=== PATIENT | female | born 1965 | race Caucasian/White ===

== ENCOUNTER 2019-12-30 18:44 | Inpatient (IN) | payer MEDICARE, OTHER ==
[~2019-12-30] VITALS: Ht 175.3 cm; Wt 90.7 kg
[2019-12-30] MEDS ORDERED: IBUPROFEN (18:55)
[2019-12-30] MEDS ORDERED: NALT50TA PO (18:55)
[2019-12-30] MEDS ORDERED: TRAZ-257 PO (18:55)
[2019-12-30] MEDS ORDERED: VENL37.55 PO (18:55)
[2019-12-30] MEDS ORDERED: BUPROPION (18:55)
--- NOTE | 2019-12-30 19:00 | NUR ---
Pt medically cleared by Dr. Schroeder.
[2019-12-30] MEDS ORDERED: HALOPERIDOL LACTATE 5 MG/1 ML VIAL IM ONE (19:30)
[2019-12-30] MEDS ORDERED: HALOPERIDOL LACTATE 5 MG/1 ML VIAL ONE (19:31)
--- NOTE | 2019-12-30 19:41 | NUR ---
Report given to [facility].
[2019-12-30 20:00] VITALS: BP 144/71
[2019-12-30] MEDS ORDERED: BLOOD SUGAR DIAGNOSTIC 1 EACH STRIP VI ONE (20:00)
[2019-12-30] MEDS ORDERED: MAGNESIUM HYDROXIDE 30 ML LIQUID UDC PO PRN (20:00)
[2019-12-30] MEDS: TEMAZEPAM 7.5 MG CAPSULE PO PRN (21:37)
--- NOTE | 2019-12-30 22:00 | NUR ---
Admission notes: At approx. 2014, admitted 54 years old female form [facility] to [facility] on a 5150 hold for GD. Per Mother Jade Messer, patient is a and she leaves on an apartment. Per hold, patient was taken to retirement on 12/28/19 d/t a DUI. She was also found covered in urine and feces, she was also making irrational statement, acting hostile. pt was then put on a 72 hrs and was taken to [facility] were she was medically cleared and transported to [facility] ER where she was given Haldol 10mg for anxiety agitation and belligerent. Upon admission, patient was noted A/O x 3; Pt reflects what is written on the hold. She is angry, uncooperative, argumentative, verbally abusive with staff. pt noted with poor insight and judgment as to the reason for her admission to MHU. Patient was able to take a shower, skin assessment was limited d/t pt poor compliant. few skin tears were noted in patient's left ankle and some in left anterior distal foot. a wound consul was ordered. Face to face assessment was done, pt was advise of her hold. advisement given as well as the booklet for "patient's right for mental health". Pt was checked for con, belongings were inventoried and secure. patient was given the unit rules. Temazepam 7.5mg PO PRN was given. Will continue with Q15 min checks.
[2019-12-31] MEDS: LORAZEPAM 1 MG TABLET PO PRN ×2 (06:53→16:57)
[2019-12-31 07:30] VITALS: BP 120/78
[2019-12-31 07:45] LABS: CREATININE 0.8 mg/dL (0.6-1.3); POTASSIUM 3.5 mmol/L (3.5-5.1)
[2019-12-31] MEDS: NICOTINE 21 MG/24HR PATCH TD SCH (08:09)
--- NOTE | 2019-12-31 09:41 | NUR ---
GPS: received patient AOx3, patient asleep on bed, patient disorganized, labile, easily irritable, patient evaluated by physical therapist, patient has some wound in her R heal, patient went back to bed after the PT eval, will continue monitor
--- NOTE | 2019-12-31 11:05 | NUR ---
Social Work Initial Discharge Plan: Patient currently resides at [address] [place] [address], [facility]. Per patient, she would like to return back home upon discharge. This script writer spoke with patient's mother Jade ([phone]) is aware and agreeable with discharge plan. case management social worker will work with the MD and the treatment team to provide proper discharge plan.
--- NOTE | 2019-12-31 11:22 | NUR ---
Social Work Firearms Report: Dietary Aide Teacher completed and submitted a [employer] firearms report for 5250 grave disability certification. A copy of report has been placed in patient chart.
--- NOTE | 2019-12-31 11:33 | NUR ---
WOUND CARE CONSULT: LIMITED ASSESSMENT DUE TO PT ONLY ALLOWED ASSESSMENT OF FEET. RT POSTERIOR FOOT/ANKLE HAS DRY WOUNDS, PRESENT ON ADMISSION. RECOMMEND DPM CONSULT. DR PASTRANA NOTIFIED OF CONSULT REQUEST. WILL SEE PRRoland JARRETT IN AGREEMENT WITH PLAN OF CARE.
--- NOTE | 2019-12-31 11:42 | NUR ---
Social Work Family Contact: This procedure writer spoke with patient's mother Jade ([phone]) is aware and agreeable with discharge plan. This procedure writer gathered collateral information.
--- NOTE | 2019-12-31 14:35 | NUR ---
Social Work Substance Abuse Intervention: \ Patient was provided with a brief substance abuse intervention and referred to [facility] [address], [place] [address] ([phone]); [facility] [address], [address], [place] [address] ([phone]); [facility] ([phone]); [facility] ([phone]); [facility] ([phone]); and National Suicide Prevention Lifeline (779-866-0604).
[2019-12-31 15:31] VITALS: BP 127/85
--- NOTE | 2019-12-31 15:35 | NUR ---
Social Work Coordination of Care: road worker spoke with patient's family service caseworker Livia ([phone]) and stated that she will make appointments for patient to follow up with her psychiatrist Dr. Gonsalez and pump operator byproducts Dr. Flower. Per Livia, she will follow-up with this grant writer.
--- NOTE | 2019-12-31 18:19 | NUR ---
patient remain to be isolative, seen patient crying , patient no distress, patient ask for medication for her anxiety, meds given as ordered, patient ate her meal, no distress at this time
[2019-12-31] MEDS: MAG HYDROX/AL HYDROX/SIMETH 30 ML LIQUID UDC PO PRN (19:42)
[2019-12-31 20:00] VITALS: BP 158/87
--- NOTE | 2019-12-31 20:54 | NUR ---
Received pt resting in bed. No acute distress noted. Pt complained of stomach upset, Maalox given. Denies SI/HI. Pt noted to be laughing by herself. Asked pt regarding it but pt just shook her head. Safety measures maintained. Will continue to monitor.
[2019-12-31] MEDS ORDERED: HALOPERIDOL 1 MG TABLET PO SCH (21:45)
[2019-12-31] MEDS: LITHIUM CARBONATE 300 MG CAPSULE PO SCH (21:48)
[2019-12-31] MEDS: BENZTROPINE MESYLATE 1 MG TABLET PO SCH (21:48)
--- NOTE | 2019-12-31 22:00 | NUR ---
Dr. Rodriguez came in and seen pt with new orders. Clarified order with MD and carried out order. Continue to monitor.
[2020-01-01 07:30] VITALS: BP 112/69
[2020-01-01] MEDS: LITHIUM CARBONATE 300 MG CAPSULE PO SCH ×3 (08:09→20:28)
[2020-01-01] MEDS: NICOTINE 21 MG/24HR PATCH TD SCH (08:09)
[2020-01-01] MEDS: BENZTROPINE MESYLATE 1 MG TABLET PO SCH ×3 (08:09→20:28)
[2020-01-01] MEDS: LORAZEPAM 1 MG TABLET PO PRN (08:41)
[2020-01-01] MEDS ORDERED: HALOPERIDOL 5 MG TABLET PO SCH (09:00)
[2020-01-01 16:23] VITALS: BP 117/72
[2020-01-01] MEDS: HALOPERIDOL 5 MG TABLET PO SCH ×2 (16:33→20:27)
--- NOTE | 2020-01-01 17:47 | NUR ---
patient AOX2, patient is agitated PRN medication given as ordered, patients denies pain, assisted with ADL, denies SI and HI
[2020-01-01 20:27] VITALS: BP 141/88
[2020-01-01] MEDS: ATORVASTATIN 10 MG TABLET PO SCH (20:28)
[2020-01-01] MEDS: MAG HYDROX/AL HYDROX/SIMETH 30 ML LIQUID UDC PO PRN (21:49)
[2020-01-02] MEDS: LORAZEPAM 1 MG TABLET PO PRN ×3 (02:55→18:04)
[2020-01-02] MEDS: ACETAMINOPHEN 325 MG TABLET PO PRN ×3 (03:08→20:01)
--- NOTE | 2020-01-02 03:08 | NUR ---
Pt awake, crying, anxious, ativan was given.
[2020-01-02] MEDS: TEMAZEPAM 7.5 MG CAPSULE PO PRN (03:23)
--- NOTE | 2020-01-02 03:23 | NUR ---
Patient up most of the night so far. Very labile behavior. Laughing, crying, banging on the alonzo and pushing on the exit door. Difficult to redirect or distract. Patient is paranoid and delusional, stating " I am tired of being in purgatory. Give me medications. I cant take it anymore and I do not give a shit if my yelling is keeping others awake." medicated earlier with Ativan. Sleeping medication given. Frequent rounds being done and monitoring patient closely for safety and any behavior escalation. Flare Man and staff will continue to redirect and encourage calmness as needed.
--- NOTE | 2020-01-02 06:28 | NUR ---
Pt slept 4.0 hrs. Fell asleep after given restoril.
[2020-01-02 07:30] VITALS: BP 114/67
[2020-01-02 08:01] LABS: BASOPHILS % (AUTO) 0.7 % (0.0-2.0); EOSINOPHILS # (AUTO) 0.2 K/uL (0.0-0.7); EOSINOPHILS % (AUTO) 3.8 % (0.0-7.0); HEMATOCRIT 38.8 % (31.2-41.9); HEMOGLOBIN 12.6 g/dL (10.9-14.3); LYMPHOCYTES # (AUTO) 1.5 K/uL (20.0-40.0); LYMPHOCYTES % (AUTO) 37.6 % (20.5-51.5); MEAN CORPUSCULAR HEMOGLOBIN 29.6 uug (24.7-32.8); MEAN CORPUSCULAR HGB CONC 33 g/dL (32.3-35.6); MEAN CORPUSCULAR VOLUME 91.2 fL (75.5-95.3); MONOCYTES # (AUTO) 0.4 K/uL (2.0-10.0); MONOCYTES % (AUTO) 9.7 % (0.0-11.0); NEUTROPHILS # (AUTO) 1.9 K/uL (1.8-8.9); NEUTROPHILS % (AUTO) 48.2 % (38.5-71.5); PLATELET COUNT (AUTO) 380 K/uL (179-408); RED BLOOD CELL COUNT(AUTO) 4.26 MIL/uL (3.63-4.92)
[2020-01-02 08:24] LABS: THYROID STIMULATING HORMONE 4.209 mIU/mL (0.358-3.740)
[2020-01-02 08:53] LABS: BILIRUBIN,TOTAL 0.5 mg/dL (0.2-1.0); CREATININE 0.8 mg/dL (0.6-1.3); MAGNESIUM 2.5 mg/dL (1.8-2.4); PHOSPHOROUS 5.5 mg/dL (2.5-4.9); POTASSIUM 4.1 mmol/L (3.5-5.1); TOTAL PROTEIN, SERUM 7.2 g/dL (6.4-8.2)
[2020-01-02] MEDS: LITHIUM CARBONATE 300 MG CAPSULE PO SCH ×3 (10:10→20:01)
[2020-01-02] MEDS: HALOPERIDOL 5 MG TABLET PO SCH ×3 (10:10→20:01)
[2020-01-02] MEDS: NICOTINE 21 MG/24HR PATCH TD SCH (10:10)
[2020-01-02] MEDS: BENZTROPINE MESYLATE 1 MG TABLET PO SCH ×3 (10:10→20:01)
[2020-01-02] MEDS: MAG HYDROX/AL HYDROX/SIMETH 30 ML LIQUID UDC PO PRN ×2 (10:42→20:16)
[2020-01-02 16:05] VITALS: BP 136/83
[2020-01-02 20:00] VITALS: BP 127/81
[2020-01-02] MEDS: ATORVASTATIN 10 MG TABLET PO SCH (20:01)
--- NOTE | 2020-01-02 20:15 | NUR ---
RECEIVED PATIENT IN THE DAYROOM. SHE IS NOTED A/O X 3. ABLE TO AMBULATE WITH STEADY GAIT, AND ABLE TO VERBALIZED FEELINGS. PATIENT NOTED LABILE, TANGENTAL, PREOCCUPIED AND ANXIOUS. PATIENT DENIES SI/HI/VH/AH/ SHE IS ABLE TO COMPLY WITH MEDICATION REGIMENT DIET AND PLAN OF CARE. PATIENT IS REASSURED FOR HER SAFETY, SAFETY AND FALL PRECAUTION IN PLACE. WILL CONTINUE TO MONITOR
[2020-01-03] MEDS: TEMAZEPAM 7.5 MG CAPSULE PO PRN (01:26)
[2020-01-03] MEDS: MAG HYDROX/AL HYDROX/SIMETH 30 ML LIQUID UDC PO PRN ×3 (02:26→21:11)
[2020-01-03] MEDS: LORAZEPAM 1 MG TABLET PO PRN ×4 (04:28→19:49)
[2020-01-03 07:30] VITALS: BP 107/76
[2020-01-03] MEDS: LITHIUM CARBONATE 300 MG CAPSULE PO SCH ×3 (08:41→21:08)
[2020-01-03] MEDS: HALOPERIDOL 5 MG TABLET PO SCH ×3 (08:41→21:09)
[2020-01-03] MEDS: BENZTROPINE MESYLATE 1 MG TABLET PO SCH ×3 (08:42→21:10)
[2020-01-03] MEDS: NICOTINE 21 MG/24HR PATCH TD SCH (08:42)
--- NOTE | 2020-01-03 12:59 | NUR ---
Social Work Individual Therapy: line worker met with patient for brief counseling to address patient's disorganized thought process. Patient appeared guarded and withdrawn. Patient was vague with her answers and stated that she is "fine". Patient was responding to internal stimulli and was singing while this mortgage loan underwriter attempted to provide therapy. This mortgage loan underwriter encouraged patient to participate in group and to interact with peers.
[2020-01-03] MEDS: ACETAMINOPHEN 325 MG TABLET PO PRN (14:38)
--- NOTE | 2020-01-03 14:45 | NUR ---
Gps/Frit Mixer- Has demanding, labile mood, needy, yels and tends to be loud to make her needs known to staff. Dcouraged from yelling,. Med. . seeking, kept coming to the Nurses station, asking for any medications that is due r" right now " per pt. Also noted crying spells.
[2020-01-03 15:10] VITALS: BP 114/80
--- NOTE | 2020-01-03 20:00 | NUR ---
Received patient in the hallway. She was noted yelling, demanding, for Mylanta. Patent noted with poor impulse control. she requires multiple redirections. She is noted A/O x 3. easily irritable, mood is low, affect is labile. Pt denies SI, Denies HI/VH/AH. Patient was given Mylanta for upset stomach and Ativan 1mg PO PRN. V/S stable, pt is reassured for her safety. safety and fall precaution in place. will continue to monitor.
[2020-01-03] MEDS: ATORVASTATIN 10 MG TABLET PO SCH (21:08)
[2020-01-04 01:03] VITALS: BP 121/84
[2020-01-04] MEDS: LORAZEPAM 1 MG TABLET PO PRN ×3 (05:59→15:21)
[2020-01-04 07:30] VITALS: BP 115/60
[2020-01-04] MEDS: BENZTROPINE MESYLATE 1 MG TABLET PO SCH ×3 (08:38→20:13)
[2020-01-04] MEDS: LITHIUM CARBONATE 300 MG CAPSULE PO SCH ×3 (08:39→20:13)
[2020-01-04] MEDS: NICOTINE 21 MG/24HR PATCH TD SCH (08:39)
[2020-01-04] MEDS: HALOPERIDOL 5 MG TABLET PO SCH ×3 (08:39→20:13)
[2020-01-04 16:00] VITALS: BP 120/74
--- NOTE | 2020-01-04 16:00 | NUR ---
Gps/Block And Case Maker Had been quiet, stayed in her room most of the time, sleeping. Encouraged participation in her group therapy.Comes out of her room and asked for her PRN
[2020-01-04 20:00] VITALS: BP 125/74
[2020-01-04] MEDS: ATORVASTATIN 10 MG TABLET PO SCH (20:13)
[2020-01-04] MEDS: TEMAZEPAM 7.5 MG CAPSULE PO PRN (21:37)
[2020-01-05] MEDS: ACETAMINOPHEN 325 MG TABLET PO PRN ×2 (04:31→10:44)
[2020-01-05] MEDS: LORAZEPAM 1 MG TABLET PO PRN ×3 (04:31→20:39)
--- NOTE | 2020-01-05 06:31 | NUR ---
GPS NOTE: Received patient last night up at the nurses station asking for " Any medications I can have ?". Patient presents very labile. Crying one minute and laughing the next. Patient only slept 5 hours and was up a few times asking for " Any medications and Ativan ". Radiation Therapist attempted to have meaningful conversation with patient a few times, but patient is still delusional and gets off track of the subject. Continuing to monitor for safety and behavior escalations. Medication adjustments noted.
[2020-01-05 07:30] VITALS: BP 121/85
[2020-01-05] MEDS: LITHIUM CARBONATE 300 MG CAPSULE PO SCH ×3 (08:11→20:39)
[2020-01-05] MEDS: NICOTINE 21 MG/24HR PATCH TD SCH ×2 (08:11→11:07)
[2020-01-05] MEDS: HALOPERIDOL 5 MG TABLET PO SCH ×3 (08:11→20:39)
[2020-01-05] MEDS: BENZTROPINE MESYLATE 1 MG TABLET PO SCH ×3 (08:14→16:30)
--- NOTE | 2020-01-05 10:45 | NUR ---
Gps/Hook Up- Yelling spells, yelling, screaming , pacing back and forth the hallway, , wants nicotine patch change right, away., applied new one. C/o gen. discomfort, tylenol 650 mg given po. Encouraged to stay in her group tx.
[2020-01-05 16:00] VITALS: BP 125/79
[2020-01-05] MEDS: MAG HYDROX/AL HYDROX/SIMETH 30 ML LIQUID UDC PO PRN (18:35)
[2020-01-05] MEDS: ATORVASTATIN 10 MG TABLET PO SCH (20:38)
[2020-01-05 21:19] VITALS: BP 120/75
[2020-01-05] MEDS: TEMAZEPAM 7.5 MG CAPSULE PO PRN (22:10)
[2020-01-06] MEDS: LORAZEPAM 1 MG TABLET PO PRN ×2 (02:14→07:51)
--- NOTE | 2020-01-06 02:22 | NUR ---
RECEIVED PATIENT IN HER ROOM. NOTED ISOLATIVE WITH LABILE MOOD. SHE LATER CAME OUT OF HER ROOM ASKING" IS THERE ANY MEDS I CAN TAKE? I HAVE ANXIETY AND NEEDS ATIVAN". ASSESSED AND GIVEN HER MEDICATIONS. SHE DENIES SI/HI. VISUAL CHECKS MADE ON HER FOR SAFETY.WILL CONTINUE TO MONITOR.
--- NOTE | 2020-01-06 06:41 | NUR ---
SLEPT FOR ABOUT 7HRS. WOKE UP THIS MORNING YELLING AND CRYING.WILL CONTINUE TO MONITOR.
[2020-01-06 07:30] VITALS: BP 116/88
--- NOTE | 2020-01-06 07:53 | NUR ---
Gps/Fire Support Specialist- Labile mood, loud, yelling, using foul language,calling staff names.Ativan 1 mg po. was given.Discouraged patient from using foul language, patient very disruptive ,yelling/screaming .
[2020-01-06] MEDS: LITHIUM CARBONATE 300 MG CAPSULE PO SCH ×3 (08:07→20:55)
[2020-01-06] MEDS: BENZTROPINE MESYLATE 1 MG TABLET PO SCH ×3 (08:07→16:16)
[2020-01-06] MEDS: HALOPERIDOL 5 MG TABLET PO SCH ×3 (08:07→20:55)
[2020-01-06] MEDS: HYDROXYZINE PAMOATE 25 MG CAPSULE PO PRN (12:51)
--- NOTE | 2020-01-06 13:31 | NUR ---
Gps/Blender / Cook- Attended part of her therapy, went right back to her room, sleeping. Yells from time to time for simple needs. Remains with irritability get anxious , but able to say thank you when needs was met.
[2020-01-06] MEDS: MAG HYDROX/AL HYDROX/SIMETH 30 ML LIQUID UDC PO PRN ×2 (13:33→18:31)
[2020-01-06 16:00] VITALS: BP 129/85
[2020-01-06] MEDS: ACETAMINOPHEN 325 MG TABLET PO PRN (16:20)
--- NOTE | 2020-01-06 18:38 | NUR ---
Gps/Inpatient Auditor- Came rushing to the Nurses station, yelling, demanding to get her mylanta " better give now befroe i threw up , "using foul language, discouraged pt. from using foul language as well as yelling , screaming for immediate needs , patient apologizes.
[2020-01-06] MEDS: ATORVASTATIN 10 MG TABLET PO SCH (20:55)
[2020-01-06 21:25] VITALS: BP 118/68
--- NOTE | 2020-01-07 01:00 | NUR ---
RECEIVED PATIENT IN HER ROOM. NOTED ISOLATIVE WITH LABILE MOOD. SHE LATER CAME OUT ASKING FOR ATIVAN. EXPLAINED THAT THE REGIMEN HAS BEEN CHANGED FROM Q4H/PRN TO Q8H. SHE THEN WENT BACK TO HER ROOM MUMBLING UNDER HER BREATH. SHE DENIES SI/HI. HOWEVER TOOK ALL MEDICATIONS.VISUAL CHECKS MADE ON HER FOR SAFETY.WILL CONTINUE TO MONITOR.
[2020-01-07] MEDS: TEMAZEPAM 7.5 MG CAPSULE PO PRN ×2 (02:04→22:57)
[2020-01-07] MEDS: HYDROXYZINE PAMOATE 25 MG CAPSULE PO PRN ×2 (06:22→15:27)
--- NOTE | 2020-01-07 06:31 | NUR ---
SLEPT FOR ABOUT 8:30HRS. AGITATED THIS MORNING REQUESTING FOR HER ATIVAN. SHE WAS GIVEN VISTARIL T 06:30.
[2020-01-07 07:30] VITALS: BP 95/67
--- NOTE | 2020-01-07 07:30 | NUR ---
GPS: received patient AOx2-3, in her room, patient disorganized, patient isolative, needy,
[2020-01-07] MEDS: NICOTINE 21 MG/24HR PATCH TD SCH (08:06)
[2020-01-07] MEDS: LITHIUM CARBONATE 300 MG CAPSULE PO SCH ×3 (08:06→20:32)
[2020-01-07] MEDS: BENZTROPINE MESYLATE 1 MG TABLET PO SCH ×3 (08:06→16:11)
[2020-01-07] MEDS: HALOPERIDOL 5 MG TABLET PO SCH ×3 (08:06→20:32)
[2020-01-07] MEDS: LORAZEPAM 1 MG TABLET PO PRN ×2 (09:37→20:02)
[2020-01-07] MEDS: ACETAMINOPHEN 325 MG TABLET PO PRN ×2 (10:27→20:02)
[2020-01-07] MEDS: MAG HYDROX/AL HYDROX/SIMETH 30 ML LIQUID UDC PO PRN (13:14)
[2020-01-07 16:00] VITALS: BP 120/73
--- NOTE | 2020-01-07 16:32 | NUR ---
patient has bouts of yelling ans shouting, however redirectable and compliant with her medication
[2020-01-07 20:24] VITALS: BP 113/77
[2020-01-07] MEDS: ATORVASTATIN 10 MG TABLET PO SCH (20:32)
--- NOTE | 2020-01-08 03:02 | NUR ---
RECEIVED PATIENT IN HER ROOM. NOTED ISOLATIVE WITH LABILE MOOD.NOTED OCCASIONAL YELLING WHEN HER NEEDS ARE NOT MET RIGHT AWAY. SHE SEEKS ATTENTION WITH FOCUS ON GETTING HER WAY REGARDING MEDICATIONS.SHE LATER CAME OUT SAYING "I NEED MY ANXIETY PILLS.LOOK AM SHAKING".I ASSESSED HER AND GAVE HER ATIVAN AT 20:30.ASKING FOR ATIVAN. SHE SHE DENIES SI/HI. HOWEVER SHE IS MED COMPLIANT.VISUAL CHECKS MADE ON HER FOR SAFETY.WILL CONTINUE TO MONITOR.
[2020-01-08] MEDS: HYDROXYZINE PAMOATE 25 MG CAPSULE PO PRN ×2 (05:07→12:17)
[2020-01-08] MEDS: PANTOPRAZOLE SODIUM 40 MG TABLET.DR PO SCH (06:39)
--- NOTE | 2020-01-08 06:50 | NUR ---
SLEPT FOR 5HOPURS. WOKE UP THIS MORNING YELLING"I WANT MY LIFE BACK ,I WANT MY CAT BACK' OVER AND OVER AGAIN.
--- NOTE | 2020-01-08 07:00 | NUR ---
GPS:received patient AOx3 patient in her room, yelling screaming, patient attention seeking and needed redirection, patient appears disorganized , denies SI and HI , compliant with medication, will continue monitor
[2020-01-08 07:30] VITALS: BP 115/73
[2020-01-08] MEDS: BENZTROPINE MESYLATE 1 MG TABLET PO SCH ×3 (08:11→16:03)
[2020-01-08] MEDS: HALOPERIDOL 5 MG TABLET PO SCH ×2 (08:11→16:02)
[2020-01-08] MEDS: NICOTINE 21 MG/24HR PATCH TD SCH (08:11)
[2020-01-08] MEDS: LITHIUM CARBONATE 300 MG CAPSULE PO SCH ×3 (08:11→22:41)
[2020-01-08] MEDS: ACETAMINOPHEN 325 MG TABLET PO PRN (08:29)
[2020-01-08] MEDS: LORAZEPAM 1 MG TABLET PO PRN ×2 (08:29→17:27)
[2020-01-08 15:14] VITALS: BP 108/66
--- NOTE | 2020-01-08 18:02 | NUR ---
patient calm in her room, easily irritable, disorganized thoughts, moods labile, no distress at this time, will continue monitor
[2020-01-08 19:50] VITALS: BP 132/76
[2020-01-08] MEDS ORDERED: LITHIUM CARBONATE 150 MG CAPSULE PO SCH (21:00)
[2020-01-08] MEDS: ATORVASTATIN 10 MG TABLET PO SCH (22:04)
[2020-01-09] MEDS: LORAZEPAM 1 MG TABLET PO PRN ×3 (02:16→19:55)
--- NOTE | 2020-01-09 05:25 | NUR ---
GPS/RN: Pt a/ox2, verbally able to make needs known. Pt was seen by Dr. Rodriguez and [place] was increased see order. Pt noted with some irritation and angry towards staffs on and off. Was able to redirect and orient to reality. Pt able to follow direction. PRN was given to calm pt, noted effect and pt resting now in bed. Continue monitor with anticipated care/needs.
[2020-01-09] MEDS: PANTOPRAZOLE SODIUM 40 MG TABLET.DR PO SCH (06:42)
[2020-01-09 07:30] VITALS: BP 120/77
[2020-01-09] MEDS: NICOTINE 21 MG/24HR PATCH TD SCH (09:18)
[2020-01-09] MEDS: LITHIUM CARBONATE 300 MG CAPSULE PO SCH ×3 (09:18→20:34)
[2020-01-09] MEDS: BENZTROPINE MESYLATE 1 MG TABLET PO SCH ×3 (09:19→17:58)
[2020-01-09] MEDS: HALOPERIDOL 5 MG TABLET PO SCH ×3 (09:19→17:58)
[2020-01-09 16:00] VITALS: BP 97/57
[2020-01-09 19:47] VITALS: BP 116/69
[2020-01-09] MEDS: ATORVASTATIN 10 MG TABLET PO SCH (20:34)
[2020-01-10] MEDS: LORAZEPAM 1 MG TABLET PO PRN ×2 (05:32→12:28)
[2020-01-10] MEDS: PANTOPRAZOLE SODIUM 40 MG TABLET.DR PO SCH (07:05)
[2020-01-10 07:30] VITALS: BP 108/69
[2020-01-10] MEDS: LITHIUM CARBONATE 300 MG CAPSULE PO SCH ×3 (09:14→20:14)
[2020-01-10] MEDS: HALOPERIDOL 5 MG TABLET PO SCH ×3 (09:14→17:20)
[2020-01-10] MEDS: BENZTROPINE MESYLATE 1 MG TABLET PO SCH ×3 (09:14→17:23)
[2020-01-10] MEDS: NICOTINE 21 MG/24HR PATCH TD SCH (09:15)
[2020-01-10] MEDS: HYDROXYZINE PAMOATE 25 MG CAPSULE PO PRN ×2 (10:54→18:12)
--- NOTE | 2020-01-10 12:40 | NUR ---
Gps/Aluminum Siding Installer - Noted extremely anxious, loud " please help me , i am having a psychotic episode " loud, yelling for her simple needs. Ativan 1 mg po. given, refusing to eat at this time. Enouraged participation in her group therapy.
[2020-01-10 16:00] VITALS: BP 120/59
--- NOTE | 2020-01-10 18:12 | NUR ---
Gps/Flat Sheet Maker- Patient was yelling in the dinning room while watching TV/news, claimed she was reacting to the news, disruptive , patient back to her room, she was crying, vistaril 25 mg 1 cap. given po.
[2020-01-10] MEDS: ATORVASTATIN 10 MG TABLET PO SCH (20:14)
[2020-01-10 21:13] VITALS: BP 123/86
[2020-01-10] MEDS: TEMAZEPAM 7.5 MG CAPSULE PO PRN (23:42)
--- NOTE | 2020-01-11 05:49 | NUR ---
PATIENT SLEPT FOR APPROX. 8.30 HRS THROUGH THE NIGHT. NO AGGRESSIVE/COMBATIVE BX NOTED DURING THE SHIFT. PT REMAINS COMPLIANT WITH MEDICATION REGIMENT AT THIS TIME.
[2020-01-11] MEDS: LORAZEPAM 1 MG TABLET PO PRN ×2 (06:24→15:43)
[2020-01-11] MEDS: PANTOPRAZOLE SODIUM 40 MG TABLET.DR PO SCH (06:30)
[2020-01-11] MEDS: HALOPERIDOL 5 MG TABLET PO SCH ×3 (08:55→17:12)
[2020-01-11] MEDS: NICOTINE 21 MG/24HR PATCH TD SCH (08:55)
[2020-01-11] MEDS: LITHIUM CARBONATE 300 MG CAPSULE PO SCH ×3 (08:56→20:51)
[2020-01-11] MEDS: BENZTROPINE MESYLATE 1 MG TABLET PO SCH ×3 (08:56→17:12)
[2020-01-11] MEDS: HYDROXYZINE PAMOATE 25 MG CAPSULE PO PRN (11:03)
[2020-01-11 16:00] VITALS: BP 121/83
--- NOTE | 2020-01-11 16:00 | NUR ---
Gps/Dehorner- Stayed in her room most of the day, sleeping, comes out of her room to ask for her prn.meds. Irritable, does not like noise, does not get along with her new roommate. Encouraged to participate in her group therapy.
[2020-01-11 20:27] VITALS: BP 112/68
[2020-01-11] MEDS: ATORVASTATIN 10 MG TABLET PO SCH (20:51)
--- NOTE | 2020-01-11 23:12 | NUR ---
GPS/ Pt A/OX3, no distress, or behavior at this time but noted sad/depress self isolating. Pt respond verbally but immediately back to lying down. No c/o pain or discomfort. compliant with medications and nursing care. Q/15mins head count ongoing and will continue monitor pt.
[2020-01-12] MEDS: LORAZEPAM 1 MG TABLET PO PRN ×3 (02:57→18:50)
[2020-01-12] MEDS: PANTOPRAZOLE SODIUM 40 MG TABLET.DR PO SCH (06:30)
[2020-01-12 07:30] VITALS: BP_SYST 108; BP_SYST 94; BP_DIAS 62; BP_DIAS 63
--- NOTE | 2020-01-12 08:00 | NUR ---
Ate breakfast, with fair appetite. Calm and compliant with taking medications
[2020-01-12] MEDS: BENZTROPINE MESYLATE 1 MG TABLET PO SCH ×3 (08:45→17:20)
[2020-01-12] MEDS: HALOPERIDOL 5 MG TABLET PO SCH ×3 (08:46→17:21)
[2020-01-12] MEDS: NICOTINE 21 MG/24HR PATCH TD SCH (08:46)
[2020-01-12] MEDS: LITHIUM CARBONATE 300 MG CAPSULE PO SCH ×3 (08:46→20:28)
--- NOTE | 2020-01-12 10:20 | NUR ---
Angry and agitated at the activity person. Redirected. Ativan po given. Had shower, calm after.
--- NOTE | 2020-01-12 13:57 | NUR ---
Resting comfortably in bed
[2020-01-12] MEDS: MAG HYDROX/AL HYDROX/SIMETH 30 ML LIQUID UDC PO PRN (14:37)
--- NOTE | 2020-01-12 14:40 | NUR ---
Complained of stomach upset. PRN medication given. Frustrated and angry when underpants did not fit her, redirected and calm after able to fit into the pants
[2020-01-12] MEDS: HYDROXYZINE PAMOATE 25 MG CAPSULE PO PRN (14:59)
[2020-01-12 16:00] VITALS: BP 116/66
--- NOTE | 2020-01-12 17:57 | NUR ---
Eating well, with request for change of meal again. Firm instruction given
[2020-01-12 20:19] VITALS: BP 108/67
[2020-01-12] MEDS: ATORVASTATIN 10 MG TABLET PO SCH (20:28)
[2020-01-12] MEDS: TEMAZEPAM 7.5 MG CAPSULE PO PRN (21:25)
[2020-01-13] MEDS: LORAZEPAM 1 MG TABLET PO PRN ×2 (04:17→16:13)
[2020-01-13] MEDS: PANTOPRAZOLE SODIUM 40 MG TABLET.DR PO SCH (06:08)
[2020-01-13 07:55] VITALS: BP 105/55
[2020-01-13] MEDS: BENZTROPINE MESYLATE 1 MG TABLET PO SCH ×3 (08:55→16:13)
[2020-01-13] MEDS: LITHIUM CARBONATE 300 MG CAPSULE PO SCH ×3 (08:55→20:15)
[2020-01-13] MEDS: HALOPERIDOL 5 MG TABLET PO SCH ×3 (08:55→16:13)
[2020-01-13] MEDS: NICOTINE 21 MG/24HR PATCH TD SCH (08:55)
[2020-01-13] MEDS: HYDROXYZINE PAMOATE 25 MG CAPSULE PO PRN (10:48)
[2020-01-13 15:32] VITALS: BP 110/54
--- NOTE | 2020-01-13 16:09 | NUR ---
PT stated she bumped her right elbow and right knee in bed. Right elbow redness noted and right mihai skin scraped no open skin noted. Pictures taken.
[2020-01-13 19:53] VITALS: BP 112/56
[2020-01-13] MEDS: ATORVASTATIN 10 MG TABLET PO SCH (20:15)
[2020-01-13] MEDS: MAG HYDROX/AL HYDROX/SIMETH 30 ML LIQUID UDC PO PRN (20:15)
[2020-01-13] MEDS: TEMAZEPAM 7.5 MG CAPSULE PO PRN (21:32)
[2020-01-14] MEDS: LORAZEPAM 1 MG TABLET PO PRN ×3 (02:31→19:45)
[2020-01-14] MEDS: PANTOPRAZOLE SODIUM 40 MG TABLET.DR PO SCH (06:35)
--- NOTE | 2020-01-14 06:58 | NUR ---
patient slept for approx 5 hrs through the night. continue labile with mood swings. will continue to monitor.
[2020-01-14 07:30] VITALS: BP 117/69
[2020-01-14] MEDS: HALOPERIDOL 5 MG TABLET PO SCH ×3 (08:39→16:18)
[2020-01-14] MEDS: LITHIUM CARBONATE 300 MG CAPSULE PO SCH ×3 (08:39→20:13)
[2020-01-14] MEDS: BENZTROPINE MESYLATE 1 MG TABLET PO SCH ×3 (08:39→16:18)
[2020-01-14] MEDS: NICOTINE 21 MG/24HR PATCH TD SCH (08:40)
--- NOTE | 2020-01-14 12:00 | NUR ---
TRANSPORTATION COORDINATION: JOSE MANUEL contacted Parisa, transportation inspector with [facility] [phone] to arrange transportation for pts return home tomorrow 01/15/20. Parisa stated she will call JOSE MANUEL back with picking table worker time.
--- NOTE | 2020-01-14 12:00 | NUR ---
Pt is in having mood swings. pt verbaly aggressive while earlier pt is cooperative.
[2020-01-14] MEDS: HYDROXYZINE PAMOATE 25 MG CAPSULE PO PRN (12:16)
[2020-01-14 16:00] VITALS: BP 114/72
[2020-01-14 20:00] VITALS: BP 139/79
[2020-01-14] MEDS: ATORVASTATIN 10 MG TABLET PO SCH (20:13)
[2020-01-14] MEDS: TEMAZEPAM 7.5 MG CAPSULE PO PRN (21:43)
[2020-01-15] MEDS: HYDROXYZINE PAMOATE 25 MG CAPSULE PO PRN ×2 (03:34→10:08)
--- NOTE | 2020-01-15 04:20 | NUR ---
GPS/ received pt in bed awake and conversing with roommate. Pt is more alert and oriented with surrounding and very pleasant with this literary writer. Pt cooperative with routine medication and asked for PRN Ativen at 1945, Restoril 7.5 at 2142, and Vistaril 25mg at 0334 per feeling restless. Pt is being monitor with no new changes, will anticipate all needs. Q/15mins head count ongoing.
[2020-01-15] MEDS: PANTOPRAZOLE SODIUM 40 MG TABLET.DR PO SCH (06:31)
[2020-01-15 07:49] VITALS: BP 126/65
[2020-01-15] MEDS: HALOPERIDOL 5 MG TABLET PO SCH (08:07)
[2020-01-15] MEDS: NICOTINE 21 MG/24HR PATCH TD SCH (08:07)
[2020-01-15] MEDS: BENZTROPINE MESYLATE 1 MG TABLET PO SCH (08:07)
[2020-01-15] MEDS: LITHIUM CARBONATE 300 MG CAPSULE PO SCH (08:08)
[2020-01-15] MEDS: LORAZEPAM 1 MG TABLET PO PRN (08:08)
--- NOTE | 2020-01-15 08:34 | NUR ---
TRANSPORTATION COORDINATION: JOSE MANUEL contacted Parisa, director of transportation with [facility] [phone] to arrange transportation for pts return home, [employer] ticket was purchased for this day with departure for [place] at 10am, JOSE MANUEL informed Parisa that it will be difficult to discharge pt in time and travel to [place] to board the train at 10:00am. Parisa stated that there was nothing else she can do.
--- NOTE | 2020-01-15 08:36 | NUR ---
INDIVIDUAL MEETING: SW met with pt to inform her transportation had been arranged by [facility] however the ticket was purchased for 10am departing from [employer] [facility] and that most likely she would no get there in time. Pt stated that she would pay for her own Uber as she wants to be discharged today and not wait until tomorrow.
--- NOTE | 2020-01-15 08:56 | NUR ---
INDIVIDUAL MEETING: Pt informed SW that she made transportation arrangements with her friend Av ([phone]) and he will be picking her up around 12pm.
--- NOTE | 2020-01-15 08:57 | NUR ---
DISCHARGE NOTE: Patient will be discharged between 12:00pm-1:00pm back home [address], [place], [place], [address]. Pt will be transported via private vehicle and picked up by friend Av ([phone]). Patients mother Jade ([phone]) is aware and agreeable. Patient is alert and oriented x4 and is aware with discharge plan. Patient denies SI. Patient is aware and agreeable with discharge plan. Patient will follow-up with (smooth stucco resurfacer) Dr. Flower ([phone]) at [address] [place] [address], [place] [address] on January 17 at 1 oclock. Patient will follow up with (psychiatrist) Dr. Bynum at [facility] [place] [address]; ([phone]) on January 21 at 11 oclock. this will be telehealth. Patient was provided with a brief substance abuse intervention and referred to [place] [facility] [address] [place] [address] ([phone]); [facility] [address], [address], [place] [address] ([phone]); [place] [facility] ([phone]); [facility] ([phone]); [facility] ([phone]); and National Suicide Prevention Lifeline ([phone]). Patient presents with euthymic and congruent mood.
--- NOTE | 2020-01-15 09:18 | NUR ---
patient will be discharge home today , attempted to take picture on her right ankle,right foot and elbow, patient refused she state that 'i just want to go home, i don't want the picture taken.
--- NOTE | 2020-01-15 10:20 | NUR ---
patient approach the nursing station, verbalizing that she hears voices that she wants to cut her wrist , but she doesnt want to , MANJEET cardoza MD aware Addendum: 01/15/20 at 1021 by KJ ALLEN RN wrong entry
--- NOTE | 2020-01-15 11:31 | NUR ---
Pt discharged and transported via private vehicle and picked up by friend Av mosley. all personal belonging return to patient,discharge instruction given to pt.
== END 2020-01-15 11:35 | disposition home or self-care (01) | DRG 885 ==
LOC: ER 19:00 → GPS 19:47
PROVIDERS: ADMIT Psychiatry & Neurology Psychiatry; ATTEND Internal Medicine
DX: F31.64 Bipolar disorder, current episode mixed, severe, with psychotic features (principal); F23 Brief psychotic disorder; F17.210 Nicotine dependence, cigarettes, uncomplicated; M20.12 Hallux valgus (acquired), left foot; M20.11 Hallux valgus (acquired), right foot; E78.5 Hyperlipidemia, unspecified; E66.9 Obesity, unspecified; Z91.5 Personal history of self-harm; F15.11 Other stimulant abuse, in remission; Z68.29 Body mass index [BMI] 29.0-29.9, adult; F10.21 Alcohol dependence, in remission; S91.019A Laceration without foreign body, unspecified ankle, initial encounter; X58.XXXA Exposure to other specified factors, initial encounter; Y93.9 Activity, unspecified; Y92.89 Other specified places as the place of occurrence of the external cause
CPT/HCPCS: 36415; 70030-TC; 83735; 84100; 84443; 85025; 93005; A4663; J1630